=== PATIENT | male | born 1980 | race Caucasian/White ===

== ENCOUNTER 2017-07-22 10:21 | Emergency (ER) | payer OTHER ==
[~2017-07-22] VITALS: Ht 172.7 cm; Wt 79.4 kg
[2017-07-22 12:32] VITALS: BP 115/69
== END 2017-07-22 12:34 | disposition home or self-care (01) ==
LOC: ER 10:21
DX: T18.9XXA Foreign body of alimentary tract, part unspecified, initial encounter (principal); Z88.1 Allergy status to other antibiotic agents; X58.XXXA Exposure to other specified factors, initial encounter; Y93.89 Activity, other specified; Y92.89 Other specified places as the place of occurrence of the external cause; Y99.8 Other external cause status